=== PATIENT | male | born 1955 | race African-American/Black ===

== ENCOUNTER 2018-02-01 09:31 | Outpatient (CLI) | payer OTHER ==
--- NOTE | 2018-02-01 11:47 | RAD ---
CERVICAL SPINE THREE VIEWS: History: Neck pain. FINDINGS: Disc space narrowing is present at the C3-4, C4-5, C5-6, C6-7 and C7-T1 levels. Minimal degenerative retrolisthesis at the C6-7 level. Mild chronic wedging at the C6 level. Prominent osteophytosis throu ghout the vertebral bodies and facets. No acute fracture, dislocation, or aggressive osseous erosions . Opacification over the left carotid bifurcation. IMPRESSION: 1. Prominent cervical spondylosis. No acute osseous abnormalities are demonstrated. 2. Atherosclerosis. POS: TPC
== END 2018-02-01 09:32 | disposition home or self-care (01) ==
LOC: RAD-FRANK 09:31
PROVIDERS: ATTEND Internal Medicine
DX: M47.892 Other spondylosis, cervical region (principal); I70.90 Unspecified atherosclerosis
CPT/HCPCS: 72040

== ENCOUNTER 2018-03-23 16:07 | Outpatient (CLI) | payer OTHER ==
--- NOTE | 2018-03-23 17:13 | RAD ---
FIVE VIEWS CERVICAL SPINE: 03/23/18 HISTORY: Cervicalgia. Neck pain for 2 to 3 months. COMPARISON: 02/01/18. FINDINGS: C1 to cervicothoracic junction is seen on the lateral view. There is straightening of the normal cerv ical lordotic curvature. No fracture or subluxation is seen. There is narrowing of the intervertebral disc spaces at all levels with multilevel osteophytes also present. The vertebral body heights are w ithin normal limits. No fracture or subluxation is seen. there is no abnormal translational motion se en between flexion and extension views. Vascular calcifications are seen overlying the neck bilateral ly. There has been no interval change from prior exam. IMPRESSION: Multilevel degenerative changes in the cervical spine, stable from prior exam. POS: JEWEL
--- NOTE | 2018-03-23 17:15 | RAD ---
LUMBAR SPINE FOUR VIEWS 03/23/18 HISTORY: Low back pain. FINDINGS: There are five lumbar type vertebrae. Pedicles are intact. Vertebral body heights and AP alignment ar e maintained. Disc space narrowing at the lowest two levels. Osteophytosis throughout the vertebral b odies and facets. No abnormal translational motion upon flexion or extension. Calcification within th e arterial structures with fusiform ectasia of the lower abdominal aorta on the lateral view. IMPRESSION: 1. Lower lumbar spondylosis. No acute osseous abnormalities are demonstrated. 2. Atherosclerosis. POS: JEWEL
== END 2018-03-23 16:08 | disposition home or self-care (01) ==
LOC: TBSIIMAG 16:07
PROVIDERS: ATTEND Neurological Surgery
DX: M54.5 Low back pain (principal); M54.2 Cervicalgia; I70.90 Unspecified atherosclerosis; M47.896 Other spondylosis, lumbar region; M47.892 Other spondylosis, cervical region
CPT/HCPCS: 72050; 72120

== ENCOUNTER 2020-03-01 07:21 | Emergency (ER) | payer OTHER ==
--- NOTE | 2020-03-01 09:30 | ULT ---
Scrotal sonogram with duplex evaluation HISTORY: Testicular pain and swelling. FINDINGS: Right testicle is 3.6 cm length and left is 3.9 cm. Each has a normal sonographic appearanc e with good color and spectral Doppler flow. Small right epididymal head cysts. Large amount of free fluid is present throughout the left side of the scrotum. Small amount on the ri ght. IMPRESSION : No evidence of testicular mass or torsion. Large left hydrocele. Cause is not evident.
[2020-03-01 09:49] LABS: Bilirubin Negative (Negative); Blood, Urine Negative (Negative); Clarity Clear (Clear); Glucose, Urine (Dipstick) 500 mg/dL (Negative); Leukocyte Negative Leu/uL (Negative); Nitrite Negative (Negative); Protein, Urine (Dipstick) Negative (Neg-Trace); Urobilinogen Normal mg/dL (Less than 2)
[2020-03-01 18:30] LABS: Chlam.trachomatis by PCR,Urine Not Detected (NotDetected)
== END 2020-03-01 09:45 | disposition home or self-care (01) ==
LOC: ERS 07:21
DX: N43.3 Hydrocele, unspecified (principal); E11.9 Type 2 diabetes mellitus without complications; E78.5 Hyperlipidemia, unspecified; I10 Essential (primary) hypertension; E78.00 Pure hypercholesterolemia, unspecified
CPT/HCPCS: 76870; 81003; 87086; 87491; 87591; 93976

== ENCOUNTER 2020-10-11 09:15 | Inpatient (IN) | payer MEDICARE, MEDICAID ==
[2020-10-11] MEDS ORDERED: Dexamethasone 10 MG/ML VIAL ONE (10:06)
[2020-10-11 10:12] LABS: #Lymphocytes 0.6 thou/uL (1.20-3.40); #Monocytes 0.7 thou/uL (0.11-0.59); #Neutrophils 3.5 thou/uL (1.40-6.50); %Basophils 0.8 % (0.0-1.0); %Eosinophils 0.3 % (0.0-10.0); %Lymphocytes 12.9 % (21.0-51.0); %Monocytes 13.8 % (0.0-10.0); %Neutrophils 72.3 % (42.0-75.0); Hemoglobin 15.5 g/dL (14.0-18.0); Mean Corpuscular Hemoglobin 24.2 pg (27.0-31.0); Mean Corpuscular Volume 78.3 fL (78.0-98.0); Mean Platelet Volume 6.9 fL (7.4-10.4); Platelet Count 235 thou/uL (130-400); RBC Distribution Width 13.2 % (11.5-14.5); Red Blood Cell (RBC) Count 6.39 mill/uL (4.70-6.10); White Blood Cell (WBC) Count 4.8 thou/uL (4.8-10.8)
[2020-10-11 10:34] LABS: ALT (SGPT) 26 U/L (8-55); AST (SGOT) 38 U/L (5-34); Albumin 2.9 g/dL (3.4-4.8); Alkaline Phosphatase 52 U/L (40-110); Anion Gap 12 mmol/L (10-20); BUN (Urea Nitrogen) 20 mg/dL (8.4-25.7); Bilirubin, Total 0.3 mg/dL (0.2-1.2); Calc. Creatinine Clearance 0 mL/min (70-130); Calcium 8.6 mg/dL (7.8-10.44); Carbon Dioxide 32 mmol/L (23-31); Chloride 95 mmol/L (98-107); Globulin 3.7 g/dL (2.4-3.5); Glucose 116 mg/dL (80-115); Potassium 4.4 mmol/L (3.5-5.1); Protein, Total 6.6 g/dL (5.8-8.1); Sodium 135 mmol/L (136-145)
--- NOTE | 2020-10-11 10:35 | RAD ---
Chest AP view INDICATION: Generalized weakness with dyspnea COMPARISON: February 17, 2017 FINDINGS: Lungs: There is increased interstitial and airspace opacity involving the mid to lower lungs bilater ally. Cardiac silhouette: The cardiomediastinal silhouette appears within normal limits. Pulmonary vasculature: Normal Pleural spaces: No pleural effusion or pneumothorax is demonstrated. Upper abdomen: No abnormality seen. Osseous structures: No acute osseous abnormality. Additional findings: None. IMPRESSION: Hazy interstitial and airspace opacity involving the mid to lower lungs bilaterally. Recommend correl ation for an atypical pneumonia.
[2020-10-11 12:32] LABS: Bilirubin Negative (Negative); Blood, Urine 2+ (Negative); Clarity Turbid (Clear); Glucose, Urine (Dipstick) 30 mg/dL (Negative); Ketone, Urine Negative (Negative); Leukocyte Negative Leu/uL (Negative); Nitrite Negative (Negative); Protein, Urine (Dipstick) 600 mg/dL (Neg-Trace); Specific Gravity, Urine 1.022 (1.002-1.036); Urobilinogen Normal mg/dL (Less than 2)
[2020-10-11 12:41] LABS: RBC/HPF 0-3 HPF (0-3); WBC/HPF None Seen HPF (0-3)
[2020-10-11 12:42] LABS: Bacteria/HPF Rare-Few HPF (None Seen); Squamous Epithelial 0-3 HPF (0-3); Transitional Epithelial 0-3 HPF (None Seen)
[2020-10-11] MEDS ORDERED: Acetaminophen 650 MG Suppository PR PRN (15:45)
[2020-10-11] MEDS ORDERED: Ondansetron PF 4 MG/2 ML Vial IVP PRN (15:45)
[2020-10-11] MEDS ORDERED: Ondansetron ODT 4 MG TAB PO PRN (15:45)
[2020-10-11] MEDS ORDERED: Albuterol 200 PUFF (6.7GM INHALER) INH PRN ×2 (15:47→16:35)
[2020-10-11 15:49] LABS: SARS-CoV-2 NAA Rapid Test DETECTED (NotDetected)
--- NOTE | 2020-10-11 15:53 | PDOC.HHP ---
Hospitalist HPI - History of Present Illness Weakness History of Present Illness: Mr. Carreon is a 65-year-old male with a past medical history of type 2 diabetes mellitus, hypertension, hyperlipidemia, BPH who presents to the emergency room for generalized weakness and shortness of breath. Patient reports that his symptoms began approximately a week and a half ago with fatigue. He denies any fevers, chills or cough. Patient noted that this morning he became short of breath and endorsed chest pain that feels very sharp when he takes a deep breath in. He denies any chest pain at rest or when ambulating. He has no history of cardiac disease. He is a non-smoker. He denies any known Covid contacts. In emergency room initial vital signs 129/90, 109, 34, 86% on room air, improved to 98% on 2 L nasal cannula. EKG showed sinus tachycardia with no ST changes. Initial troponin 0 0.010. Chest x-ray showed diffuse patchy bilateral infiltrates consistent with COVID-19 pneumonia. H/H 15.5/50.1. WBC 4.8. Platelets 235. BUN/CR 20/1.13, sodium 135, potassium 4.4. Glucose 116. Patient received 6 mg of Decadron in emergency room. Hospitalist ROS - Review of Systems Constitutional: reports: weakness, malaise. denies: fever, chills, sweats, other Eyes: denies: pain, vision change, conjunctivae inflammation, eyelid inflammation, redness, other ENT: denies: ear pain, ear discharge, nose pain, nose discharge, nose congestion, mouth pain, mouth swelling, throat pain, throat swelling, other Respiratory: reports: shortness of breath, pleuritic pain. denies: cough, dry, hemoptysis, SOB with excertion, sputum, wheezing, other Cardiovascular: denies: chest pain, palpitations, orthopnea, paroxysmal noc. dyspnea, edema, light headedness, other Gastrointestinal: denies: nausea, vomiting, abdominal pain, diarrhea, constipation, melena, hematochezia, other Genitourinary: denies: dysuria, frequency, incontinence, hematuria, retention, other Musculoskeletal: denies: neck pain, shoulder pain, arm pain, back pain, hand pain, leg pain, foot pain, other Skin: denies: rash, lesions, esther, bruising, other Neurological: denies: weakness, numbness, incoordination, change in speech, confusion, seizures, other - Medication Medications: New medications include Plavix Flomax fungicide Lantus Losartan Simvastatin No known drug allergies Hospitalist History - Past Medical History Other Medical History: Past medical history includes Type 2 diabetes mellitus on insulin Hypertension Hyperlipidemia BPH - Family History Other Family History: No pertinent family history - Social History Smoking Status: Never smoker Alcohol: reports: None Drugs: reports: none Living Situation: Alone Activity level: independent ambulation - Exam General Appearance: NAD, awake alert General - other findings: Comfortable on 2 L nasal cannula Eye: PERRL, anicteric sclera ENT: normocephalic atraumatic, no oropharyngeal lesions, dry oral mucosa Neck: supple, symmetric, no JVD, no thyromegaly, no lymphadenopathy, no carotid bruit Heart: no murmur, no gallops, no rubs, normal peripheral pulses Heart - other findings: Tachycardic Respiratory: no wheezes, normal chest expansion, no tachypnea Respiratory - other findings: Rales at bases Gastrointestinal: soft, non-tender, non-distended, normal bowel sounds, no palpable masses, no hepatomegaly, no splenomegaly, no bruit Extremities: no cyanosis, no clubbing, no edema Skin: normal turgor, no lesions, no rashes Neurological: cranial nerve grossly intact, normal sensation to touch, no weakness, no focal deficits, no new deficit Musculoskeletal: normal tone, normal strength, no muscle wasting Psychiatric: normal affect, normal behavior, A&O x 3 Hospitalist Results - Labs Result Diagrams: 10/11/20 09:54 10/11/20 09:54 Lab results: WBC 4.8 thou/uL (4.8-10.8) 10/11/20 09:54 Hgb 15.5 g/dL (14.0-18.0) 10/11/20 09:54 Hct 50.1 % (42.0-52.0) 10/11/20 09:54 MCV 78.3 fL (78.0-98.0) 10/11/20 09:54 Plt Count 235 thou/uL (130-400) 10/11/20 09:54 Neutrophils % 72.3 % (42.0-75.0) 10/11/20 09:54 Sodium 135 mmol/L (136-145) L 10/11/20 09:54 Potassium 4.4 mmol/L (3.5-5.1) 10/11/20 09:54 Chloride 95 mmol/L (98-107) L 10/11/20 09:54 Carbon Dioxide 32 mmol/L (23-31) H 10/11/20 09:54 BUN 20 mg/dL (8.4-25.7) 10/11/20 09:54 Creatinine 1.13 mg/dL (0.7-1.3) 10/11/20 09:54 Glucose 116 mg/dL (80-115) H 10/11/20 09:54 Calcium 8.6 mg/dL (7.8-10.44) 10/11/20 09:54 Total Bilirubin 0.3 mg/dL (0.2-1.2) 10/11/20 09:54 AST 38 U/L (5-34) H 10/11/20 09:54 ALT 26 U/L (8-55) 10/11/20 09:54 Alkaline Phosphatase 52 U/L (40-110) 10/11/20 09:54 Troponin I Less than 0.010 ng/mL (< 0.028) 10/11/20 09:54 B-Natriuretic Peptide 17.6 pg/mL (0-100) 10/11/20 09:54 Serum Total Protein 6.6 g/dL (5.8-8.1) 10/11/20 09:54 Albumin 2.9 g/dL (3.4-4.8) L 10/11/20 09:54 Urine Ketones Negative mg/dL (Negative) 10/11/20 10:10 Urine Blood 2+ (Negative) A 10/11/20 10:10 Urine Nitrite Negative (Negative) 10/11/20 10:10 Ur Leukocyte Esterase Negative Tyesha/uL (Negative) 10/11/20 10:10 Urine RBC 0-3 HPF (0-3) 10/11/20 10:10 Urine WBC None Seen HPF (0-3) 10/11/20 10:10 Ur Squamous Epith Cells 0-3 HPF (0-3) 10/11/20 10:10 Urine Bacteria Rare-Few HPF (None Seen) 10/11/20 10:10 Hospitalist H&P A/P - Plan Plan: Suspected COVID-19 pneumonia Patient presents with 1-1/2 weeks of generalized weakness and shortness of breath. Chest x-ray showed bilateral patchy infiltrates consistent with COVID- 19 pneumonia. High suspicion. Patient does deny fevers, cough however does endorse myalgias, malaise. Patient with new O2 requirement 86% on room air now needing 2 L nasal cannula. WBC 4.8. H/H 15.5/50.1. Covid pending. Plan Covid pending Supplemental oxygen Tylenol, ibuprofen for myalgias Trend WBC, fever curve Dexamethasone, consider remdesivir if Covid positive Chest pain Patient with pleuritic chest pain. Describes pain worse when he takes a deep breath that is sharp. Denies any squeezing pressure like chest pain. No history of cardiac disease although patient does have significant risk factors. Initial troponin 0 0.010. EKG showed sinus tachycardia with no ST changes. Chest pain likely secondary to COVID-19 pneumonia, however will check D-dimer and consider CTA. Plan Likely secondary to COVID-19 pneumonia Trend troponin D-dimer Telemetry monitoring ASA Acute hypoxic respiratory failure Patient with acute hypoxic respiratory failure secondary to moderate to severe COVID-19 pneumonia. Patient with new oxygen requirement now on 2 L of oxygen nasal cannula to maintain O2 sat. We will continue supplemental oxygen and closely monitor respiratory status. Treatment as above. Plan -Supplemental oxygen -Treatment as above -Closely monitor respiratory status Hypertension Continue home losartan Hyperlipidemia Continue home statin Type 2 diabetes mellitus Continue Lantus at half dose, ISS, ACHS glucose checks BPH Continue Flomax DVT prophylaxis - Lovenox FULL CODE Case discussed with attending physician, Dr. Steinberg.
[2020-10-11 17:03] LABS: Lactic Acid 1.1 mmol/L (0.5-2.2)
[2020-10-11] MEDS ORDERED: Dextrose 50% Abboject 50 ML SYRINGE SLOW IVP PRN (20:45)
[2020-10-11] MEDS ORDERED: Dextrose 5% in Water 1,000 ML IV PRN (20:45)
[2020-10-11] MEDS: HumaLOG 300 UNITS/3 ML VIAL SC PRN (21:11)
[2020-10-12] MEDS: HumaLOG 300 UNITS/3 ML VIAL SC PRN ×4 (06:22→19:44)
[2020-10-12 06:43] LABS: Hemoglobin 14.8 g/dL (14.0-18.0); Mean Corpuscular HGB CONC 32.7 g/dL (32.0-36.0); Mean Corpuscular Volume 79.6 fL (78.0-98.0); Mean Platelet Volume 6.7 fL (7.4-10.4); Platelet Count 243 thou/uL (130-400); Red Blood Cell (RBC) Count 5.68 mill/uL (4.70-6.10); White Blood Cell (WBC) Count 3.8 thou/uL (4.8-10.8)
[2020-10-12 06:57] LABS: Anion Gap 10 mmol/L (10-20); BUN (Urea Nitrogen) 25 mg/dL (8.4-25.7); Calc. Creatinine Clearance 57 mL/min (70-130); Calcium 8.5 mg/dL (7.8-10.44); Carbon Dioxide 33 mmol/L (23-31); Chloride 98 mmol/L (98-107); Glucose 266 mg/dL (80-115); Sodium 136 mmol/L (136-145)
[2020-10-12] MEDS: Ascorbic Acid 500 mg Chewable Tablet PO SCH (08:03)
[2020-10-12] MEDS: Dexamethasone 4 MG TAB PO SCH (08:03)
[2020-10-12] MEDS: Zinc Sulfate 220 MG CAP PO SCH (08:03)
[2020-10-12 08:36] LABS: MDiff Complete? YES
[2020-10-12 08:37] LABS: Band 8 % (5-11); Eosinophils 1 % (0-10); Lymphocytes 22 % (21-51); Monocytes 18 % (0-10); Neutrophil 48 % (42-75); RBC Morphology Normal; Reactive Lymphocytes 3 % (0-10)
[2020-10-12] MEDS ORDERED: Enoxaparin Sodium 40 MG/0.4 ML SYRINGE SC SCH (09:00)
--- NOTE | 2020-10-12 09:15 | PDOC.HOSPP ---
- Subjective Encounter Date: 10/12/20 Encounter Time: 10:50 Subjective: Patient reports improved shortness of breath on oxygen. Still with coughing. Patient also with some generalized weakness. - Objective Vital Signs & Weight: Vital Signs (12 hours) Temp Pulse Resp BP Pulse Ox 10/12/20 08:00 98.4 F 84 22 H 137/93 H 93 L 10/12/20 04:00 97.5 F L 102 H 20 146/98 H 99 10/12/20 00:00 97.4 F L 100 20 119/80 95 Weight Weight 146 lb 12.8 oz Result Diagrams: 10/12/20 05:57 10/12/20 05:57 Additional Labs: Accuchecks 10/12/20 10/11/20 10/11/20 05:42 19:57 09:41 POC Glucose 251 H 374 H 123 H Hospitalist ROS - Review of Systems Constitutional: reports: weakness. denies: fever, chills Respiratory: reports: cough, shortness of breath Cardiovascular: denies: chest pain, palpitations Gastrointestinal: denies: nausea, vomiting, abdominal pain - Medication Medications: Active Medications Generic Name Dose Route Start Last Admin Trade Name Freq PRN Reason Stop Dose Admin Ascorbic Acid 1,000 mg 10/12/20 09:00 10/12/20 08:03 Ascorbic Acid 500 Mg Chewable Tablet PO 1,000 mg DAILY FER Administration Dexamethasone 6 mg 10/12/20 08:00 10/12/20 08:03 Dexamethasone 4 Mg Tab PO 6 mg QAM-WM FER Administration Enoxaparin Sodium 40 mg 10/12/20 09:00 10/12/20 08:03 Enoxaparin Sodium 40 Mg/0.4 Ml Syringe SC 40 mg 0900 FER Administration Insulin Human Lispro 0 units 10/11/20 20:45 10/12/20 06:22 Humalog 300 Units/3 Ml Vial SC 6 unit .MODERATE SLIDING SC PRN Administration Moderate Correctional Scale Insulin Human Lispro 0 units 10/11/20 20:45 10/11/20 21:11 Humalog 300 Units/3 Ml Vial SC 5 unit .BEDTIME SLIDING SC PRN Administration Bedtime Correctional Scale Zinc Sulfate 220 mg 10/12/20 09:00 10/12/20 08:03 Zinc Sulfate 220 Mg Cap PO 220 mg DAILY FER Administration - Exam General Appearance: NAD, awake alert ENT: moist mucosa Heart: RRR, no murmur, no gallops, no rubs Respiratory: CTAB, no wheezes, no rales, no ronchi Gastrointestinal: soft, non-tender, non-distended, normal bowel sounds Extremities: no edema Psychiatric: normal affect, normal behavior Hosp A/P - Plan COVID-19 pneumonia Patient presents with 1-1/2 weeks of generalized weakness and shortness of breath. Chest x-ray showed bilateral patchy infiltrates consistent with COVID- 19 pneumonia. Covid-19 test now positive. Patient does deny fevers, cough however does endorse myalgias, malaise. Patient with new O2 requirement 86% on room air now needing 2 L nasal cannula. WBC 4.8. H/H 15.5/50.1. Plan Supplemental oxygen Tylenol, ibuprofen for myalgias Trend WBC, fever curve Dexamethasone, start Remdesivir Chest pain-resolved Patient with pleuritic chest pain. Describes pain worse when he takes a deep breath that is sharp. Denies any squeezing pressure like chest pain. No history of cardiac disease although patient does have significant risk factors. Initial troponin 0 0.010. EKG showed sinus tachycardia with no ST changes. Chest pain likely secondary to COVID-19 pneumonia, however will check D-dimer an d consider CTA. Plan Secondary to COVID-19 pneumonia Trend troponin D-dimer Telemetry monitoring ASA Acute hypoxic respiratory failure Patient with acute hypoxic respiratory failure secondary to moderate to severe COVID-19 pneumonia. Patient with new oxygen requirement now on 2 L of oxygen nasal cannula to maintain O2 sat. We will continue supplemental oxygen and closely monitor respiratory status. Treatment as above. Plan -Supplemental oxygen -Treatment as above -Closely monitor respiratory status Hypertension Continue home losartan Hyperlipidemia Continue home statin Type 2 diabetes mellitus Resume home Lantus and glipizide, ISS, ACHS glucose checks BPH Continue Flomax DVT prophylaxis - Lovenox FULL CODE
[2020-10-12] MEDS ORDERED: Insulin Glargine 20 UNITS in Pre-Filled Syringe 1 EACH SC SCH (09:30)
[2020-10-12] MEDS ORDERED: REMDESIVIR (EUA) 200 MG in Sodium Chloride 0.9% 250 ML 210 ML IV SCH (11:30)
[2020-10-12] MEDS: Acetaminophen 325 MG TAB PO PRN (16:27)
[2020-10-12] MEDS: Atorvastatin Calcium 20 MG TAB PO SCH (19:53)
[2020-10-13 07:39] LABS: #Lymphocytes 0.8 thou/uL (1.20-3.40); #Monocytes 0.6 thou/uL (0.11-0.59); #Neutrophils 4.7 thou/uL (1.40-6.50); %Basophils 0.3 % (0.0-1.0); %Eosinophils 0.1 % (0.0-10.0); %Lymphocytes 12.7 % (21.0-51.0); %Neutrophils 76.8 % (42.0-75.0); Hemoglobin 14.4 g/dL (14.0-18.0); Mean Corpuscular HGB CONC 31.6 g/dL (32.0-36.0); Mean Corpuscular Hemoglobin 24.9 pg (27.0-31.0); Mean Corpuscular Volume 78.7 fL (78.0-98.0); Mean Platelet Volume 6.4 fL (7.4-10.4); Platelet Count 305 thou/uL (130-400); Red Blood Cell (RBC) Count 5.76 mill/uL (4.70-6.10); White Blood Cell (WBC) Count 6.2 thou/uL (4.8-10.8)
[2020-10-13 07:55] LABS: Anion Gap 14 mmol/L (10-20); BUN (Urea Nitrogen) 20 mg/dL (8.4-25.7); Calc. Creatinine Clearance 79 mL/min (70-130); Calcium 8.5 mg/dL (7.8-10.44); Carbon Dioxide 28 mmol/L (23-31); Chloride 101 mmol/L (98-107); Glucose 127 mg/dL (80-115); Potassium 4.6 mmol/L (3.5-5.1); Sodium 138 mmol/L (136-145)
--- NOTE | 2020-10-13 08:02 | PDOC.HOSPP ---
- Subjective Encounter Date: 10/13/20 Encounter Time: 10:10 Subjective: Patient reports shortness of breath and cough though appears improved. He has had to be increased to 5 L of oxygen via nasal cannula. No new complaints. - Objective Vital Signs & Weight: Vital Signs (12 hours) Temp Pulse Resp BP Pulse Ox 10/13/20 05:11 97.6 F 86 18 141/86 H 97 10/13/20 00:11 97.6 F 82 18 152/102 H 90 L 10/12/20 20:04 98.1 F 101 H 18 138/87 98 Weight Admit Weight 146 lb 12.8 oz Weight 146 lb 12.8 oz Result Diagrams: 10/13/20 06:39 10/13/20 06:39 Additional Labs: Accuchecks 10/13/20 10/12/20 10/12/20 04:20 19:14 16:17 POC Glucose 158 H 229 H 250 H Hospitalist ROS - Review of Systems Constitutional: denies: fever, chills Respiratory: reports: cough, shortness of breath Cardiovascular: denies: chest pain, palpitations Gastrointestinal: denies: nausea, vomiting, abdominal pain - Medication Medications: Active Medications Generic Name Dose Route Start Last Admin Trade Name Freq PRN Reason Stop Dose Admin Acetaminophen 650 mg 10/11/20 15:45 10/12/20 16:27 Acetaminophen 325 Mg Tab PO 650 mg Q4H PRN Administration Headache/Fever/Mild Pain (1-3) Ascorbic Acid 1,000 mg 10/12/20 09:00 10/12/20 08:03 Ascorbic Acid 500 Mg Chewable Tablet PO 1,000 mg DAILY FER Administration Atorvastatin Calcium 20 mg 10/12/20 21:00 10/12/20 19:53 Atorvastatin Calcium 20 Mg Tab PO 20 mg HS FER Administration Dexamethasone 6 mg 10/12/20 08:00 10/12/20 08:03 Dexamethasone 4 Mg Tab PO 6 mg QAM-WM FER Administration Enoxaparin Sodium 40 mg 10/12/20 09:00 10/12/20 08:03 Enoxaparin Sodium 40 Mg/0.4 Ml Syringe SC 40 mg 0900 FER Administration Insulin Human Lispro 0 units 10/11/20 20:45 10/12/20 16:27 Humalog 300 Units/3 Ml Vial SC 4 unit .MODERATE SLIDING SC PRN Administration Moderate Correctional Scale Insulin Human Lispro 0 units 10/11/20 20:45 10/12/20 19:44 Humalog 300 Units/3 Ml Vial SC 2 unit .BEDTIME SLIDING SC PRN Administration Bedtime Correctional Scale Zinc Sulfate 220 mg 10/12/20 09:00 10/12/20 08:03 Zinc Sulfate 220 Mg Cap PO 220 mg DAILY FER Administration - Exam General Appearance: NAD, awake alert ENT: moist mucosa Heart: RRR, no murmur, no gallops, no rubs Respiratory: CTAB, no wheezes, no rales, no ronchi Gastrointestinal: soft, non-tender, non-distended, normal bowel sounds Extremities: no edema Psychiatric: normal affect, normal behavior Hosp A/P - Plan COVID-19 pneumonia Patient presents with 1-1/2 weeks of generalized weakness and shortness of breath. Chest x-ray showed bilateral patchy infiltrates consistent with COVID- 19 pneumonia. Covid-19 test now positive. Patient does deny fevers, cough however does endorse myalgias, malaise. Patient with new O2 requirement 86% on room air now needing 2 L nasal cannula. WBC 4.8. H/H 15.5/50.1. 10/13- Oxygen now up to 5 L NC O2. Plan Supplemental oxygen Tylenol, ibuprofen for myalgias Trend WBC, fever curve Dexamethasone, Remdesivir day 2 Chest pain-resolved Patient with pleuritic chest pain. Describes pain worse when he takes a deep breath that is sharp. Denies any squeezing pressure like chest pain. No history of cardiac disease although patient does have significant risk factors. Initial troponin 0 0.010. EKG showed sinus tachycardia with no ST changes. Chest pain likely secondary to COVID-19 pneumonia. Plan Secondary to COVID-19 pneumonia ASA Acute hypoxic respiratory failure Patient with acute hypoxic respiratory failure secondary to moderate to severe COVID-19 pneumonia. Patient with new oxygen requirement now on 5 L of oxygen nasal cannula to maintain O2 sat. We will continue supplemental oxygen and closely monitor respiratory status. Treatment as above. Plan -Supplemental oxygen -Treatment as above -Closely monitor respiratory status Hypertension Continue home losartan Hyperlipidemia Continue home statin Type 2 diabetes mellitus Resume home Lantus and glipizide, ISS, ACHS glucose checks BPH Continue Flomax DVT prophylaxis - Lovenox FULL CODE
[2020-10-13] MEDS: Insulin Glargine 20 UNITS in Pre-Filled Syringe 1 EACH SC SCH (08:39)
[2020-10-13] MEDS: Losartan 25 MG TAB PO SCH (08:40)
[2020-10-13] MEDS: glipiZIDE 10 MG TAB PO SCH (08:40)
[2020-10-13] MEDS: Enoxaparin Sodium 40 MG/0.4 ML SYRINGE SC SCH ×2 (08:40→20:49)
[2020-10-13] MEDS: Zinc Sulfate 220 MG CAP PO SCH (08:40)
[2020-10-13] MEDS: Cholecalciferol 1,000 UNITS (25 MCG) TAB PO SCH (08:41)
[2020-10-13] MEDS: Dexamethasone 4 MG TAB PO SCH (08:41)
[2020-10-13] MEDS: Hydrochlorothiazide 25 MG TAB PO SCH (08:41)
[2020-10-13] MEDS: Ascorbic Acid 500 mg Chewable Tablet PO SCH (08:41)
[2020-10-13] MEDS: Tamsulosin HCl 0.4 MG CAP PO SCH (08:42)
[2020-10-13] MEDS: Clopidogrel Bisulfate 75 MG TAB PO SCH (08:42)
[2020-10-13] MEDS: Acetaminophen 325 MG TAB PO PRN (08:42)
[2020-10-13] MEDS ORDERED: Losartan 25 MG TAB PO SCH (09:00)
[2020-10-13] MEDS ORDERED: Non-Formulary Item 1 EACH (Hydrochlorothiazide [Hydrochlorothiazide] 12.5 MG Capsule) PO SCH (09:00)
[2020-10-13] MEDS ORDERED: Clopidogrel Bisulfate 75 MG TAB PO SCH (09:00)
[2020-10-13] MEDS ORDERED: Tamsulosin HCl 0.4 MG CAP PO SCH (09:00)
[2020-10-13] MEDS: HumaLOG 300 UNITS/3 ML VIAL SC PRN ×2 (12:35→20:50)
[2020-10-13] MEDS: REMDESIVIR (EUA) 100 MG in Sodium Chloride 0.9% 250 ML 230 ML IV SCH (14:39)
[2020-10-13] MEDS: Atorvastatin Calcium 20 MG TAB PO SCH (20:49)
[2020-10-14 06:37] LABS: #Lymphocytes 1.1 thou/uL (1.20-3.40); #Monocytes 0.5 thou/uL (0.11-0.59); #Neutrophils 4.5 thou/uL (1.40-6.50); %Basophils 0.4 % (0.0-1.0); %Eosinophils 0.3 % (0.0-10.0); %Monocytes 7.6 % (0.0-10.0); %Neutrophils 73.6 % (42.0-75.0); Hemoglobin 15.2 g/dL (14.0-18.0); Mean Corpuscular HGB CONC 30.8 g/dL (32.0-36.0); Mean Corpuscular Hemoglobin 24.3 pg (27.0-31.0); Mean Corpuscular Volume 79.1 fL (78.0-98.0); Mean Platelet Volume 6.1 fL (7.4-10.4); Platelet Count 344 thou/uL (130-400); RBC Distribution Width 13.2 % (11.5-14.5); Red Blood Cell (RBC) Count 6.24 mill/uL (4.70-6.10); White Blood Cell (WBC) Count 6.1 thou/uL (4.8-10.8)
[2020-10-14 06:57] LABS: Anion Gap 10 mmol/L (10-20); BUN (Urea Nitrogen) 18 mg/dL (8.4-25.7); Calc. Creatinine Clearance 74 mL/min (70-130); Calcium 8.9 mg/dL (7.8-10.44); Carbon Dioxide 31 mmol/L (23-31); Chloride 100 mmol/L (98-107); Glucose 78 mg/dL (80-115); Potassium 4.4 mmol/L (3.5-5.1); Sodium 137 mmol/L (136-145)
[2020-10-14] MEDS: Insulin Glargine 20 UNITS in Pre-Filled Syringe 1 EACH SC SCH (08:30)
[2020-10-14] MEDS: Ascorbic Acid 500 mg Chewable Tablet PO SCH (08:31)
[2020-10-14] MEDS: Hydrochlorothiazide 25 MG TAB PO SCH (08:31)
[2020-10-14] MEDS: Tamsulosin HCl 0.4 MG CAP PO SCH (08:31)
[2020-10-14] MEDS: Enoxaparin Sodium 40 MG/0.4 ML SYRINGE SC SCH ×2 (08:31→19:29)
[2020-10-14] MEDS: Dexamethasone 4 MG TAB PO SCH (08:31)
[2020-10-14] MEDS: glipiZIDE 10 MG TAB PO SCH (08:31)
[2020-10-14] MEDS: Losartan 25 MG TAB PO SCH (08:32)
[2020-10-14] MEDS: Cholecalciferol 1,000 UNITS (25 MCG) TAB PO SCH (08:32)
[2020-10-14] MEDS: Clopidogrel Bisulfate 75 MG TAB PO SCH (08:32)
[2020-10-14] MEDS: Zinc Sulfate 220 MG CAP PO SCH (08:32)
[2020-10-14] MEDS: HumaLOG 300 UNITS/3 ML VIAL SC PRN ×3 (11:41→19:31)
[2020-10-14] MEDS: REMDESIVIR (EUA) 100 MG in Sodium Chloride 0.9% 250 ML 230 ML IV SCH (14:09)
[2020-10-14] MEDS ORDERED: Polyethylene Glycol 3350 17 GM Packet PO SCH (14:45)
--- NOTE | 2020-10-14 18:17 | PDOC.HOSPP ---
- Subjective Encounter Date: 10/14/20 Encounter Time: 12:30 Subjective: Patient seen and examined for respiratory failure due to COVID-19 pneumonia. Shortness of breath slowly improving. Denies any chest pain, palpitations or syncope. Mild dry cough reported. - Objective Vital Signs & Weight: Vital Signs (12 hours) Temp Pulse Resp BP Pulse Ox 10/14/20 12:12 97.5 F L 93 20 113/78 93 L 10/14/20 12:00 97 10/14/20 08:54 98.5 F 106 H 20 105/70 94 L 10/14/20 08:43 93 L 10/14/20 08:00 94 L Weight Admit Weight 146 lb 12.8 oz Weight 149 lb 8 oz I&O: 10/13/20 10/14/20 10/15/20 06:59 06:59 06:59 Intake Total 360 Output Total 400 1000 Balance -400 -640 Result Diagrams: 10/14/20 06:23 10/14/20 06:23 Additional Labs: Accuchecks 10/14/20 10/14/20 10/13/20 16:45 11:15 19:21 POC Glucose 212 H 214 H 276 H Abnormal Lab Results - Last 48 hrs 10/13/20 06:39: MCH 24.9 L, MCHC 31.6 L, MPV 6.4 L, Neutrophils % 76.8 H, Lymphocytes % 12.7 L, Lymphocytes # 0.8 L, Monocytes # 0.6 H 10/14/20 06:23: RBC 6.24 H, MCH 24.3 L, MCHC 30.8 L, MPV 6.1 L, Lymphocytes % 18.0 L, Lymphocytes # 1.1 L Radiology Reviewed by me: Yes (Chest x-raybilateral pneumonia) Hospitalist ROS - Review of Systems Cardiovascular: denies: chest pain, palpitations, orthopnea, paroxysmal noc. dyspnea, edema, light headedness, other Gastrointestinal: denies: nausea, vomiting, abdominal pain, diarrhea, constipation, melena, hematochezia, other - Medication Medications: Active Medications Generic Name Dose Route Start Last Admin Trade Name Freq PRN Reason Stop Dose Admin Acetaminophen 650 mg 10/11/20 15:45 10/13/20 08:42 Acetaminophen 325 Mg Tab PO 650 mg Q4H PRN Administration Headache/Fever/Mild Pain (1-3) Ascorbic Acid 1,000 mg 10/12/20 09:00 10/14/20 08:31 Ascorbic Acid 500 Mg Chewable Tablet PO 1,000 mg DAILY FER Administration Atorvastatin Calcium 20 mg 10/12/20 21:00 10/13/20 20:49 Atorvastatin Calcium 20 Mg Tab PO 20 mg HS FER Administration Cholecalciferol 1,000 units 10/13/20 09:00 10/14/20 08:32 Cholecalciferol 1,000 Units (25 Mcg) Tab PO 1,000 units DAILY FER Administration Clopidogrel Bisulfate 75 mg 10/13/20 09:00 10/14/20 08:32 Clopidogrel Bisulfate 75 Mg Tab PO 75 mg DAILY FER Administration Dexamethasone 6 mg 10/12/20 08:00 10/14/20 08:31 Dexamethasone 4 Mg Tab PO 6 mg QAM-WM FER Administration Enoxaparin Sodium 40 mg 10/13/20 09:00 10/14/20 08:31 Enoxaparin Sodium 40 Mg/0.4 Ml Syringe SC 40 mg 0900,2100 FER Administration Glipizide 10 mg 10/13/20 09:00 10/14/20 08:31 Glipizide 10 Mg Tab PO 10 mg DAILY FER Administration Hydrochlorothiazide 12.5 mg 10/13/20 09:00 10/14/20 08:31 Hydrochlorothiazide 25 Mg Tab PO 12.5 mg DAILY FER Administration Insulin Glargine 20 units/ 0.2 mls @ 0 mls/hr 10/13/20 09:00 10/14/20 08:30 Miscellaneous Medication SC 0.2 mls DAILY FER Administration Remdesivir 100 mg/ Sodium 250 mls @ 250 mls/hr 10/13/20 13:00 10/14/20 14:09 Chloride IV 10/16/20 13:59 250 mls 1300 FER Administration Insulin Human Lispro 0 units 10/11/20 20:45 10/14/20 16:57 Humalog 300 Units/3 Ml Vial SC 4 unit .MODERATE SLIDING SC PRN Administration Moderate Correctional Scale Insulin Human Lispro 0 units 10/11/20 20:45 10/13/20 20:50 Humalog 300 Units/3 Ml Vial SC 3 unit .BEDTIME SLIDING SC PRN Administration Bedtime Correctional Scale Losartan Potassium 25 mg 10/13/20 09:00 10/14/20 08:32 Losartan 25 Mg Tab PO 25 mg DAILY FER Administration Tamsulosin HCl 0.4 mg 10/13/20 09:00 10/14/20 08:31 Tamsulosin Hcl 0.4 Mg Cap PO 0.4 mg DAILY FER Administration Zinc Sulfate 220 mg 10/12/20 09:00 10/14/20 08:32 Zinc Sulfate 220 Mg Cap PO 220 mg DAILY FER Administration - Exam General Appearance: NAD Heart: RRR, no gallops Respiratory: no wheezes, rales, rhonchi Gastrointestinal: soft, non-distended Extremities: no cyanosis, no clubbing Neurological: no new deficit Musculoskeletal: generalized weakness Hosp A/P - Plan DVT proph w/SCDs Acute hypoxic respiratory failure due to COVID-19 pneumonia Hypertension Hyperlipidemia Diabetes mellitus type 2 Benign prostatic hypertrophy Constipation Plan: Continue O2 supplementation. Continue remdesivir with Decadron. Continue Lovenox for DVT prophylaxis. Continue current dose of Lantus with sliding scale. Continue other antihypertensives. Treat constipation. Continue other medications as above. Monitor inflammatory markers
[2020-10-14] MEDS: Atorvastatin Calcium 20 MG TAB PO SCH (19:28)
[2020-10-14] MEDS: Acetaminophen 325 MG TAB PO PRN (19:28)
[2020-10-14] MEDS: Senokot S 8.6-50 MG TAB PO SCH (19:29)
[2020-10-15 07:15] LABS: #Eosinphils 0.1 thou/uL (0.0-0.7); #Monocytes 0.5 thou/uL (0.11-0.59); #Neutrophils 4.1 thou/uL (1.40-6.50); %Lymphocytes 17.3 % (21.0-51.0); %Neutrophils 72.8 % (42.0-75.0); Hemoglobin 15.3 g/dL (14.0-18.0); Mean Corpuscular HGB CONC 32.1 g/dL (32.0-36.0); Mean Corpuscular Hemoglobin 25.8 pg (27.0-31.0); Mean Corpuscular Volume 80.4 fL (78.0-98.0); Platelet Count 341 thou/uL (130-400); RBC Distribution Width 13.1 % (11.5-14.5); Red Blood Cell (RBC) Count 5.91 mill/uL (4.70-6.10); White Blood Cell (WBC) Count 5.6 thou/uL (4.8-10.8)
[2020-10-15 07:30] LABS: ALT (SGPT) 45 U/L (8-55); AST (SGOT) 28 U/L (5-34); Albumin 2.8 g/dL (3.4-4.8); Alkaline Phosphatase 59 U/L (40-110); Anion Gap 12 mmol/L (10-20); BUN (Urea Nitrogen) 21 mg/dL (8.4-25.7); Bilirubin, Total 0.3 mg/dL (0.2-1.2); CRP (Inflammatory) 6.14 mg/dL (= or < 0.5); Calc. Creatinine Clearance 63 mL/min (70-130); Calcium 8.9 mg/dL (7.8-10.44); Carbon Dioxide 34 mmol/L (23-31); Chloride 99 mmol/L (98-107); Globulin 3.4 g/dL (2.4-3.5); Glucose 74 mg/dL (80-115); Potassium 4.4 mmol/L (3.5-5.1); Protein, Total 6.2 g/dL (5.8-8.1); Sodium 141 mmol/L (136-145)
[2020-10-15] MEDS: glipiZIDE 10 MG TAB PO SCH (08:31)
[2020-10-15] MEDS: Zinc Sulfate 220 MG CAP PO SCH (08:31)
[2020-10-15] MEDS: Ascorbic Acid 500 mg Chewable Tablet PO SCH (08:31)
[2020-10-15] MEDS: Hydrochlorothiazide 25 MG TAB PO SCH (08:31)
[2020-10-15] MEDS: Dexamethasone 4 MG TAB PO SCH (08:32)
[2020-10-15] MEDS: Tamsulosin HCl 0.4 MG CAP PO SCH (08:32)
[2020-10-15] MEDS: Senokot S 8.6-50 MG TAB PO SCH ×2 (08:32→20:42)
[2020-10-15] MEDS: Clopidogrel Bisulfate 75 MG TAB PO SCH (08:32)
[2020-10-15] MEDS: Losartan 25 MG TAB PO SCH (08:32)
[2020-10-15] MEDS: Cholecalciferol 1,000 UNITS (25 MCG) TAB PO SCH (08:32)
[2020-10-15] MEDS: Polyethylene Glycol 3350 17 GM Packet PO SCH (08:33)
[2020-10-15] MEDS: Enoxaparin Sodium 40 MG/0.4 ML SYRINGE SC SCH ×2 (08:33→20:43)
[2020-10-15] MEDS: Acetaminophen 325 MG TAB PO PRN ×2 (13:01→20:42)
[2020-10-15] MEDS: REMDESIVIR (EUA) 100 MG in Sodium Chloride 0.9% 250 ML 230 ML IV SCH (14:58)
[2020-10-15] MEDS: HumaLOG 300 UNITS/3 ML VIAL SC PRN ×2 (16:48→20:44)
[2020-10-15] MEDS: Atorvastatin Calcium 20 MG TAB PO SCH (20:43)
[2020-10-15] MEDS: Insulin Glargine 10 UNITS in Pre-Filled Syringe 1 EACH SC SCH (20:44)
--- NOTE | 2020-10-15 21:44 | PDOC.HOSPP ---
- Subjective Encounter Date: 10/15/20 Encounter Time: 14:30 Subjective: Patient seen and examined for respiratory failure due to COVID 19 pneumonia. Symptomatically feeling better. Denies any chest pain or palpitations. Shortness of breath improving. - Objective Vital Signs & Weight: Vital Signs (12 hours) Temp Pulse Resp BP Pulse Ox Pulse Ox Pulse Ox 10/15/20 20:00 94 L 10/15/20 19:48 97.7 F 87 18 97/64 94 L 10/15/20 15:50 88 20 93 L 10/15/20 09:58 91 L 92 L Weight Admit Weight 146 lb 12.8 oz Weight 149 lb 8 oz I&O: 10/14/20 10/15/20 10/16/20 06:59 06:59 06:59 Intake Total 360 Output Total 400 1000 Balance -400 -640 Result Diagrams: 10/15/20 06:21 10/15/20 06:21 Additional Labs: Accuchecks 10/15/20 10/15/20 10/15/20 19:57 16:23 11:39 POC Glucose 264 H 351 H 165 H 10/15/20 10/14/20 10/13/20 03:50 19:27 11:43 POC Glucose 141 H 210 H 180 H 10/12/20 11:15 POC Glucose 259 H Abnormal Lab Results - Last 48 hrs 10/14/20 06:23: RBC 6.24 H, MCH 24.3 L, MCHC 30.8 L, MPV 6.1 L, Lymphocytes % 18.0 L, Lymphocytes # 1.1 L 10/15/20 06:21: MCH 25.8 L, MPV 6.0 L, Lymphocytes % 17.3 L, Lymphocytes # 1.0 L 10/15/20 06:21: Carbon Dioxide 34 H, C-Reactive Protein 6.14 H, Albumin 2.8 L, Albumin/Globulin Ratio 0.8 L 10/15/20 06:21: D-Dimer 1.91 H Radiology Reviewed by me: Yes (Chest x-ray on admission reviewed) Hospitalist ROS - Review of Systems Cardiovascular: denies: chest pain, palpitations, orthopnea, paroxysmal noc. dyspnea, edema, light headedness, other Gastrointestinal: denies: nausea, vomiting, abdominal pain, diarrhea, constipation, melena, hematochezia, other - Medication Medications: Active Medications Generic Name Dose Route Start Last Admin Trade Name Freq PRN Reason Stop Dose Admin Acetaminophen 650 mg 10/11/20 15:45 10/15/20 20:42 Acetaminophen 325 Mg Tab PO 650 mg Q4H PRN Administration Headache/Fever/Mild Pain (1-3) Ascorbic Acid 1,000 mg 10/12/20 09:00 10/15/20 08:31 Ascorbic Acid 500 Mg Chewable Tablet PO 1,000 mg DAILY FER Administration Atorvastatin Calcium 20 mg 10/12/20 21:00 10/15/20 20:43 Atorvastatin Calcium 20 Mg Tab PO 20 mg HS FER Administration Cholecalciferol 1,000 units 10/13/20 09:00 10/15/20 08:32 Cholecalciferol 1,000 Units (25 Mcg) Tab PO 1,000 units DAILY FER Administration Clopidogrel Bisulfate 75 mg 10/13/20 09:00 10/15/20 08:32 Clopidogrel Bisulfate 75 Mg Tab PO 75 mg DAILY FER Administration Dexamethasone 6 mg 10/12/20 08:00 10/15/20 08:32 Dexamethasone 4 Mg Tab PO 6 mg QAM- FER Administration Enoxaparin Sodium 40 mg 10/13/20 09:00 10/15/20 20:43 Enoxaparin Sodium 40 Mg/0.4 Ml Syringe SC 40 mg 0900,2100 FER Administration Glipizide 10 mg 10/13/20 09:00 10/15/20 08:31 Glipizide 10 Mg Tab PO 10 mg DAILY FER Administration Hydrochlorothiazide 12.5 mg 10/13/20 09:00 10/15/20 08:31 Hydrochlorothiazide 25 Mg Tab PO 12.5 mg DAILY FER Administration Remdesivir 100 mg/ Sodium 250 mls @ 250 mls/hr 10/13/20 13:00 10/15/20 14:58 Chloride IV 10/16/20 13:59 250 mls 1300 FER Administration Insulin Glargine 10 units/ 0.1 mls @ 0 mls/hr 10/15/20 21:00 10/15/20 20:44 Miscellaneous Medication SC 0.1 mls HS FER Administration Insulin Human Lispro 0 units 10/11/20 20:45 10/15/20 16:48 Humalog 300 Units/3 Ml Vial SC 10 unit .MODERATE SLIDING SC PRN Administration Moderate Correctional Scale Insulin Human Lispro 0 units 10/11/20 20:45 10/15/20 20:44 Humalog 300 Units/3 Ml Vial SC 3 unit .BEDTIME SLIDING SC PRN Administration Bedtime Correctional Scale Losartan Potassium 25 mg 10/13/20 09:00 10/15/20 08:32 Losartan 25 Mg Tab PO 25 mg DAILY FER Administration Polyethylene Glycol 17 gm 10/15/20 09:00 10/15/20 08:33 Polyethylene Glycol 3350 17 Gm Packet PO 17 gm DAILY FER Administration Senna/Docusate Sodium 2 tab 10/14/20 21:00 10/15/20 20:42 Senokot S 8.6-50 Mg Tab PO 2 tab BID FER Administration Tamsulosin HCl 0.4 mg 10/13/20 09:00 10/15/20 08:32 Tamsulosin Hcl 0.4 Mg Cap PO 0.4 mg DAILY FER Administration Zinc Sulfate 220 mg 10/12/20 09:00 10/15/20 08:31 Zinc Sulfate 220 Mg Cap PO 220 mg DAILY FER Administration - Exam General Appearance: awake alert Neck: supple, no JVD Heart: RRR, no gallops Respiratory: rales, rhonchi Extremities: no cyanosis, no clubbing Neurological: no new deficit Musculoskeletal: generalized weakness Psychiatric: A&O x 3 Hosp A/P - Plan DVT proph w/SCDs Acute hypoxic respiratory failure due to COVID-19 pneumonia Hypertension Hyperlipidemia Diabetes mellitus type 2 Benign prostatic hypertrophy Constipation Plan: Patient requiring 4 L oxygen nasal cannula. Continue to wean O2 as tolerated. Inflammatory markers improving. Will reduce Lantus dose due to hypoglycemia. Continue Remdesivir with Decadron. Continue other medications as above. A.m. labs.
[2020-10-15] MEDS ORDERED: Electrolyte Replacement Protocol 1 EACH FS SCH (21:45)
[2020-10-15] MEDS ORDERED: Magnesium 2 GM/50 ML 2 GM in Premix Bag 1 BAG IVPB SCH (22:00)
[2020-10-16] MEDS: HumaLOG 300 UNITS/3 ML VIAL SC PRN ×4 (04:40→20:12)
[2020-10-16 06:14] LABS: #Eosinphils 0.1 thou/uL (0.0-0.7); #Lymphocytes 1.2 thou/uL (1.20-3.40); #Monocytes 0.3 thou/uL (0.11-0.59); #Neutrophils 4.8 thou/uL (1.40-6.50); %Basophils 0.4 % (0.0-1.0); %Eosinophils 2.1 % (0.0-10.0); %Lymphocytes 18.5 % (21.0-51.0); %Monocytes 5.2 % (0.0-10.0); %Neutrophils 73.8 % (42.0-75.0); Hemoglobin 14.8 g/dL (14.0-18.0); Mean Corpuscular HGB CONC 31.9 g/dL (32.0-36.0); Mean Corpuscular Hemoglobin 25.2 pg (27.0-31.0); Mean Corpuscular Volume 79.2 fL (78.0-98.0); Mean Platelet Volume 5.9 fL (7.4-10.4); Platelet Count 396 thou/uL (130-400); RBC Distribution Width 13.1 % (11.5-14.5); Red Blood Cell (RBC) Count 5.86 mill/uL (4.70-6.10); White Blood Cell (WBC) Count 6.5 thou/uL (4.8-10.8)
[2020-10-16 06:41] LABS: ALT (SGPT) 51 U/L (8-55); AST (SGOT) 25 U/L (5-34); Albumin 2.6 g/dL (3.4-4.8); Alkaline Phosphatase 62 U/L (40-110); Anion Gap 12 mmol/L (10-20); BUN (Urea Nitrogen) 23 mg/dL (8.4-25.7); Bilirubin, Total 0.3 mg/dL (0.2-1.2); Calc. Creatinine Clearance 78 mL/min (70-130); Calcium 8.8 mg/dL (7.8-10.44); Carbon Dioxide 28 mmol/L (23-31); Chloride 100 mmol/L (98-107); Globulin 3.4 g/dL (2.4-3.5); Glucose 129 mg/dL (80-115); Potassium 4.2 mmol/L (3.5-5.1); Sodium 136 mmol/L (136-145)
--- NOTE | 2020-10-16 08:08 | PDOC.HOSPP ---
- Subjective Encounter Date: 10/16/20 Encounter Time: 10:45 Subjective: Patient reports no shortness of breath while on oxygen. He has been ambulating to the bathroom. He denies any fever or other complaints. - Objective Vital Signs & Weight: Vital Signs (12 hours) Temp Pulse Resp BP BP Pulse Ox 10/16/20 07:38 97.6 F 88 22 H 133/89 95 10/16/20 05:26 96 10/15/20 22:56 97.6 F 83 18 112/76 97 Weight Admit Weight 146 lb 12.8 oz Weight 149 lb 8 oz I&O: 10/15/20 10/16/20 10/17/20 06:59 06:59 06:59 Intake Total 360 Output Total 1000 Balance -640 Result Diagrams: 10/16/20 05:43 10/16/20 05:43 Additional Labs: Accuchecks 10/16/20 10/15/20 10/15/20 04:05 19:57 16:23 POC Glucose 180 H 264 H 351 H 10/15/20 10/14/20 10/13/20 11:39 19:27 11:43 POC Glucose 165 H 210 H 180 H 10/12/20 11:15 POC Glucose 259 H Hospitalist ROS - Review of Systems Constitutional: denies: fever, chills Respiratory: denies: cough, shortness of breath Cardiovascular: denies: chest pain, palpitations Gastrointestinal: denies: nausea, vomiting, abdominal pain - Medication Medications: Active Medications Generic Name Dose Route Start Last Admin Trade Name Freq PRN Reason Stop Dose Admin Acetaminophen 650 mg 10/11/20 15:45 10/15/20 20:42 Acetaminophen 325 Mg Tab PO 650 mg Q4H PRN Administration Headache/Fever/Mild Pain (1-3) Ascorbic Acid 1,000 mg 10/12/20 09:00 10/15/20 08:31 Ascorbic Acid 500 Mg Chewable Tablet PO 1,000 mg DAILY FER Administration Atorvastatin Calcium 20 mg 10/12/20 21:00 10/15/20 20:43 Atorvastatin Calcium 20 Mg Tab PO 20 mg HS FER Administration Cholecalciferol 1,000 units 10/13/20 09:00 10/15/20 08:32 Cholecalciferol 1,000 Units (25 Mcg) Tab PO 1,000 units DAILY FER Administration Clopidogrel Bisulfate 75 mg 10/13/20 09:00 10/15/20 08:32 Clopidogrel Bisulfate 75 Mg Tab PO 75 mg DAILY FER Administration Dexamethasone 6 mg 10/12/20 08:00 10/15/20 08:32 Dexamethasone 4 Mg Tab PO 6 mg QAM-WM FER Administration Enoxaparin Sodium 40 mg 10/13/20 09:00 10/15/20 20:43 Enoxaparin Sodium 40 Mg/0.4 Ml Syringe SC 40 mg 0900,2100 FER Administration Glipizide 10 mg 10/13/20 09:00 10/15/20 08:31 Glipizide 10 Mg Tab PO 10 mg DAILY FER Administration Hydrochlorothiazide 12.5 mg 10/13/20 09:00 10/15/20 08:31 Hydrochlorothiazide 25 Mg Tab PO 12.5 mg DAILY FER Administration Remdesivir 100 mg/ Sodium 250 mls @ 250 mls/hr 10/13/20 13:00 10/15/20 14:58 Chloride IV 10/16/20 13:59 250 mls 1300 FER Administration Insulin Glargine 10 units/ 0.1 mls @ 0 mls/hr 10/15/20 21:00 10/15/20 20:44 Miscellaneous Medication SC 0.1 mls HS FER Administration Insulin Human Lispro 0 units 10/11/20 20:45 10/16/20 04:40 Humalog 300 Units/3 Ml Vial SC 2 unit .MODERATE SLIDING SC PRN Administration Moderate Correctional Scale Insulin Human Lispro 0 units 10/11/20 20:45 10/15/20 20:44 Humalog 300 Units/3 Ml Vial SC 3 unit .BEDTIME SLIDING SC PRN Administration Bedtime Correctional Scale Losartan Potassium 25 mg 10/13/20 09:00 10/15/20 08:32 Losartan 25 Mg Tab PO 25 mg DAILY FER Administration Polyethylene Glycol 17 gm 10/15/20 09:00 10/15/20 08:33 Polyethylene Glycol 3350 17 Gm Packet PO 17 gm DAILY FER Administration Senna/Docusate Sodium 2 tab 10/14/20 21:00 10/15/20 20:42 Senokot S 8.6-50 Mg Tab PO 2 tab BID FER Administration Sodium Chloride 10 ml 10/11/20 15:45 10/15/20 22:33 Flush - Normal Saline 10 Ml Syringe IVF 10 ml PRN PRN Administration Saline Flush Tamsulosin HCl 0.4 mg 10/13/20 09:00 10/15/20 08:32 Tamsulosin Hcl 0.4 Mg Cap PO 0.4 mg DAILY FER Administration Zinc Sulfate 220 mg 10/12/20 09:00 10/15/20 08:31 Zinc Sulfate 220 Mg Cap PO 220 mg DAILY FER Administration Hospitalist Exam Vitals: Vital Signs (12 hours) Temp Pulse Resp BP BP Pulse Ox 10/16/20 07:38 97.6 F 88 22 H 133/89 95 10/16/20 05:26 96 10/15/20 22:56 97.6 F 83 18 112/76 97 Weight Admit Weight 146 lb 12.8 oz Weight 149 lb 8 oz General Appearance: NAD, awake alert ENT: moist mucosa Heart: RRR, no murmur, no gallops, no rubs Respiratory: no wheezes, no ronchi, no tachypnea Respiratory - other findings: Minimal bibasilar rales Gastrointestinal: soft, non-tender, non-distended, normal bowel sounds Extremities: no edema Psychiatric: normal affect, normal behavior Hosp A/P - Plan COVID-19 pneumonia Patient presents with 1-1/2 weeks of generalized weakness and shortness of breath. Chest x-ray showed bilateral patchy infiltrates consistent with COVID- 19 pneumonia. Covid-19 test now positive. Patient does deny fevers, cough however does endorse myalgias, malaise. Patient with new O2 requirement 86% on room air now needing 2 L nasal cannula. WBC 4.8. H/H 15.5/50.1. 10/13- Oxygen now up to 5 L NC O2. 10/15- Oxygen now on 4L NC O2 Plan Supplemental oxygen Tylenol, ibuprofen for myalgias Trend WBC, fever curve Dexamethasone, Remdesivir day 01/23 Chest pain-resolved Patient with pleuritic chest pain. Describes pain worse when he takes a deep breath that is sharp. Denies any squeezing pressure like chest pain. No history of cardiac disease although patient does have significant risk factors. Initial troponin 0 0.010. EKG showed sinus tachycardia with no ST changes. Chest pain likely secondary to COVID-19 pneumonia. Plan Secondary to COVID-19 pneumonia ASA Acute hypoxic respiratory failure Patient with acute hypoxic respiratory failure secondary to moderate to severe COVID-19 pneumonia. Patient with new oxygen requirement now on 4 L of oxygen nasal cannula to maintain O2 sat. We will continue supplemental oxygen and closely monitor respiratory status. Treatment as above. Plan -Supplemental oxygen -Treatment as above -Closely monitor respiratory status Hypertension Continue home losartan Hyperlipidemia Continue home statin Type 2 diabetes mellitus Resume home Lantus and glipizide, ISS, ACHS glucose checks BPH Continue Flomax DVT prophylaxis - Lovenox FULL CODE Disposition: Home on home O2 when improving. Possibly tomorrow or the day af ter.
[2020-10-16] MEDS: Senokot S 8.6-50 MG TAB PO SCH ×2 (08:31→20:11)
[2020-10-16] MEDS: Hydrochlorothiazide 25 MG TAB PO SCH (08:32)
[2020-10-16] MEDS: Dexamethasone 4 MG TAB PO SCH (08:32)
[2020-10-16] MEDS: glipiZIDE 10 MG TAB PO SCH (08:32)
[2020-10-16] MEDS: Cholecalciferol 1,000 UNITS (25 MCG) TAB PO SCH (08:33)
[2020-10-16] MEDS: Tamsulosin HCl 0.4 MG CAP PO SCH (08:33)
[2020-10-16] MEDS: Ascorbic Acid 500 mg Chewable Tablet PO SCH (08:33)
[2020-10-16] MEDS: Clopidogrel Bisulfate 75 MG TAB PO SCH (08:33)
[2020-10-16] MEDS: Multivit, Therapeutic 1 TAB PO SCH (08:33)
[2020-10-16] MEDS: Losartan 25 MG TAB PO SCH (08:33)
[2020-10-16] MEDS: Zinc Sulfate 220 MG CAP PO SCH (08:33)
[2020-10-16] MEDS: Polyethylene Glycol 3350 17 GM Packet PO SCH (08:34)
[2020-10-16] MEDS: Enoxaparin Sodium 40 MG/0.4 ML SYRINGE SC SCH ×2 (08:34→20:11)
[2020-10-16] MEDS: REMDESIVIR (EUA) 100 MG in Sodium Chloride 0.9% 250 ML 230 ML IV SCH (13:28)
[2020-10-16] MEDS: Insulin Glargine 10 UNITS in Pre-Filled Syringe 1 EACH SC SCH (20:11)
[2020-10-16] MEDS: Atorvastatin Calcium 20 MG TAB PO SCH (20:11)
[2020-10-17 06:13] LABS: #Eosinphils 0.1 thou/uL (0.0-0.7); #Lymphocytes 1.1 thou/uL (1.20-3.40); #Monocytes 0.4 thou/uL (0.11-0.59); #Neutrophils 4.3 thou/uL (1.40-6.50); %Basophils 0.2 % (0.0-1.0); %Eosinophils 1.8 % (0.0-10.0); %Monocytes 7.1 % (0.0-10.0); Mean Corpuscular Hemoglobin 25.4 pg (27.0-31.0); Mean Corpuscular Volume 79.5 fL (78.0-98.0); Platelet Count 362 thou/uL (130-400); RBC Distribution Width 13.4 % (11.5-14.5); Red Blood Cell (RBC) Count 5.91 mill/uL (4.70-6.10); White Blood Cell (WBC) Count 5.9 thou/uL (4.8-10.8)
[2020-10-17 06:35] LABS: ALT (SGPT) 41 U/L (8-55); AST (SGOT) 19 U/L (5-34); Albumin 2.6 g/dL (3.4-4.8); Alkaline Phosphatase 57 U/L (40-110); Anion Gap 14 mmol/L (10-20); BUN (Urea Nitrogen) 22 mg/dL (8.4-25.7); Bilirubin, Total 0.3 mg/dL (0.2-1.2); Calc. Creatinine Clearance 73 mL/min (70-130); Calcium 8.3 mg/dL (7.8-10.44); Carbon Dioxide 26 mmol/L (23-31); Chloride 102 mmol/L (98-107); Globulin 3.4 g/dL (2.4-3.5); Sodium 137 mmol/L (136-145)
[2020-10-17 06:39] LABS: Glucose 56 mg/dL (80-115)
[2020-10-17] MEDS: Hydrochlorothiazide 25 MG TAB PO SCH (07:32)
[2020-10-17] MEDS: Cholecalciferol 1,000 UNITS (25 MCG) TAB PO SCH (07:32)
[2020-10-17] MEDS: Senokot S 8.6-50 MG TAB PO SCH ×2 (07:32→20:29)
[2020-10-17] MEDS: Dexamethasone 4 MG TAB PO SCH (07:32)
[2020-10-17] MEDS: glipiZIDE 10 MG TAB PO SCH (07:32)
[2020-10-17] MEDS: Clopidogrel Bisulfate 75 MG TAB PO SCH (07:33)
[2020-10-17] MEDS: Tamsulosin HCl 0.4 MG CAP PO SCH (07:33)
[2020-10-17] MEDS: Losartan 25 MG TAB PO SCH (07:33)
[2020-10-17] MEDS: Multivit, Therapeutic 1 TAB PO SCH (07:33)
[2020-10-17] MEDS: Zinc Sulfate 220 MG CAP PO SCH (07:33)
[2020-10-17] MEDS: Ascorbic Acid 500 mg Chewable Tablet PO SCH (07:33)
[2020-10-17] MEDS: Enoxaparin Sodium 40 MG/0.4 ML SYRINGE SC SCH ×2 (07:33→20:29)
[2020-10-17] MEDS: Polyethylene Glycol 3350 17 GM Packet PO SCH (07:34)
--- NOTE | 2020-10-17 07:37 | PDOC.HOSPP ---
- Subjective Encounter Date: 10/17/20 Encounter Time: 08:50 Subjective: Patient without complaints. He is alert and oriented to person and knows he is in the hospital. However he thinks he is still in [place]. He also thought it was 2001. Patient reports that he lives alone and [place] and that all of his family lives in [place]. Patient probably not able to go home by himself on oxygen. - Objective Vital Signs & Weight: Vital Signs (12 hours) Temp Pulse Resp BP Pulse Ox 10/17/20 05:27 98.1 F 78 20 110/82 96 10/16/20 23:47 98.2 F 78 20 114/78 98 10/16/20 20:00 94 L Weight Admit Weight 146 lb 12.8 oz Weight 148 lb 8.2 oz I&O: 10/16/20 10/17/20 10/18/20 06:59 06:59 06:59 Intake Total 240 Output Total 550 Balance -310 Result Diagrams: 10/17/20 05:36 10/17/20 05:36 Additional Labs: Accuchecks 10/17/20 10/16/20 10/16/20 05:25 19:19 15:58 POC Glucose 72 269 H 240 H Hospitalist ROS - Review of Systems Constitutional: denies: fever, chills Respiratory: denies: cough, shortness of breath Cardiovascular: denies: chest pain, palpitations Gastrointestinal: denies: nausea, vomiting, abdominal pain - Medication Medications: Active Medications Generic Name Dose Route Start Last Admin Trade Name Freq PRN Reason Stop Dose Admin Acetaminophen 650 mg 10/11/20 15:45 10/15/20 20:42 Acetaminophen 325 Mg Tab PO 650 mg Q4H PRN Administration Headache/Fever/Mild Pain (1-3) Ascorbic Acid 1,000 mg 10/12/20 09:00 10/17/20 07:33 Ascorbic Acid 500 Mg Chewable Tablet PO 1,000 mg DAILY FER Administration Atorvastatin Calcium 20 mg 10/12/20 21:00 10/16/20 20:11 Atorvastatin Calcium 20 Mg Tab PO 20 mg HS FER Administration Cholecalciferol 1,000 units 10/13/20 09:00 10/17/20 07:32 Cholecalciferol 1,000 Units (25 Mcg) Tab PO 1,000 units DAILY FER Administration Clopidogrel Bisulfate 75 mg 10/13/20 09:00 10/17/20 07:33 Clopidogrel Bisulfate 75 Mg Tab PO 75 mg DAILY FER Administration Dexamethasone 6 mg 10/12/20 08:00 10/17/20 07:32 Dexamethasone 4 Mg Tab PO 6 mg QAM-WM FER Administration Enoxaparin Sodium 40 mg 10/13/20 09:00 10/17/20 07:33 Enoxaparin Sodium 40 Mg/0.4 Ml Syringe SC 40 mg 0900,2100 FER Administration Glipizide 10 mg 10/13/20 09:00 10/17/20 07:32 Glipizide 10 Mg Tab PO 10 mg DAILY FER Administration Hydrochlorothiazide 12.5 mg 10/13/20 09:00 10/17/20 07:32 Hydrochlorothiazide 25 Mg Tab PO 12.5 mg DAILY FER Administration Insulin Glargine 10 units/ 0.1 mls @ 0 mls/hr 10/15/20 21:00 10/16/20 20:11 Miscellaneous Medication SC 0.1 mls HS FER Administration Insulin Human Lispro 0 units 10/11/20 20:45 10/16/20 16:58 Humalog 300 Units/3 Ml Vial SC 4 unit .MODERATE SLIDING SC PRN Administration Moderate Correctional Scale Insulin Human Lispro 0 units 10/11/20 20:45 10/16/20 20:12 Humalog 300 Units/3 Ml Vial SC 3 unit .BEDTIME SLIDING SC PRN Administration Bedtime Correctional Scale Losartan Potassium 25 mg 10/13/20 09:00 10/17/20 07:33 Losartan 25 Mg Tab PO 25 mg DAILY FER Administration Multivitamins 1 tab 10/16/20 09:00 10/17/20 07:33 Multivit, Therapeutic 1 Tab PO 1 tab DAILY FER Administration Polyethylene Glycol 17 gm 10/15/20 09:00 10/17/20 07:34 Polyethylene Glycol 3350 17 Gm Packet PO 17 gm DAILY FER Administration Senna/Docusate Sodium 2 tab 10/14/20 21:00 10/17/20 07:32 Senokot S 8.6-50 Mg Tab PO 2 tab BID FER Administration Sodium Chloride 10 ml 10/11/20 15:45 10/15/20 22:33 Flush - Normal Saline 10 Ml Syringe IVF 10 ml PRN PRN Administration Saline Flush Tamsulosin HCl 0.4 mg 10/13/20 09:00 10/17/20 07:33 Tamsulosin Hcl 0.4 Mg Cap PO 0.4 mg DAILY FER Administration Zinc Sulfate 220 mg 10/12/20 09:00 10/17/20 07:33 Zinc Sulfate 220 Mg Cap PO 220 mg DAILY FER Administration Hospitalist Exam Vitals: Vital Signs (12 hours) Temp Pulse Resp BP Pulse Ox 10/17/20 05:27 98.1 F 78 20 110/82 96 10/16/20 23:47 98.2 F 78 20 114/78 98 10/16/20 20:00 94 L Weight Admit Weight 146 lb 12.8 oz Weight 148 lb 8.2 oz General Appearance: NAD, awake alert ENT: moist mucosa Heart: RRR, no murmur, no gallops, no rubs Respiratory: CTAB, no wheezes, no rales, no ronchi Gastrointestinal: soft, non-tender, non-distended, normal bowel sounds Extremities: no edema Neurological: no focal deficits Musculoskeletal: normal tone, normal strength Psychiatric: normal affect, normal behavior, oriented to person. negative: oriented to place, oriented to time Hosp A/P - Plan COVID-19 pneumonia Patient presents with 1-1/2 weeks of generalized weakness and shortness of breath. Chest x-ray showed bilateral patchy infiltrates consistent with COVID- 19 pneumonia. Covid-19 test now positive. Patient does deny fevers, cough however does endorse myalgias, malaise. Patient with new O2 requirement 86% on room air now needing 2 L nasal cannula. WBC 4.8. H/H 15.5/50.1. 10/13- Oxygen now up to 5 L NC O2. 10/15- Oxygen now on 4L NC O2 10/17-oxygen still at 4 L nasal cannula O2 Plan Supplemental oxygen Tylenol, ibuprofen for myalgias Trend WBC, fever curve Dexamethasone, Remdesivir completed Chest pain-resolved Patient with pleuritic chest pain. Describes pain worse when he takes a deep breath that is sharp. Denies any squeezing pressure like chest pain. No history of cardiac disease although patient does have significant risk factors. Initial troponin 0 0.010. EKG showed sinus tachycardia with no ST changes. Chest pain likely secondary to COVID-19 pneumonia. Plan Secondary to COVID-19 pneumonia ASA Acute hypoxic respiratory failure Patient with acute hypoxic respiratory failure secondary to moderate to severe COVID-19 pneumonia. Patient with new oxygen requirement now on 4 L of oxygen nasal cannula to maintain O2 sat. We will continue supplemental oxygen and closely monitor respiratory status. Treatment as above. Plan -Supplemental oxygen -Treatment as above -Closely monitor respiratory status Hypertension Continue home losartan Hyperlipidemia Continue home statin Type 2 diabetes mellitus Resume home Lantus and glipizide, ISS, ACHS glucose checks BPH Continue Flomax Acute versus chronic encephalopathy Uncertain if patient has some baseline dementia. DVT prophylaxis - Lovenox FULL CODE Disposition: Home on home O2 when improving. Given patient's mental status he is probably not safe to go home alone. We will have case management contact family and see if there is someone he can go stay with when he is discharged. He was down to 3 L of oxygen when I was in the room and can likely go home tomorrow if he has somewhere safe to go with home oxygen.
[2020-10-17 10:06] VITALS: BMI 22.6
[2020-10-17] MEDS: HumaLOG 300 UNITS/3 ML VIAL SC PRN ×3 (12:07→20:33)
[2020-10-17] MEDS: Atorvastatin Calcium 20 MG TAB PO SCH (20:29)
[2020-10-17] MEDS: Insulin Glargine 10 UNITS in Pre-Filled Syringe 1 EACH SC SCH (20:29)
[2020-10-18] MEDS: HumaLOG 300 UNITS/3 ML VIAL SC PRN ×3 (05:18→17:19)
[2020-10-18 08:33] VITALS: BP 117/77; TEMP 97.3
[2020-10-18] MEDS: Hydrochlorothiazide 25 MG TAB PO SCH (09:04)
[2020-10-18] MEDS: Polyethylene Glycol 3350 17 GM Packet PO SCH (09:04)
[2020-10-18] MEDS: Cholecalciferol 1,000 UNITS (25 MCG) TAB PO SCH (09:09)
[2020-10-18] MEDS: Clopidogrel Bisulfate 75 MG TAB PO SCH (09:09)
[2020-10-18] MEDS: glipiZIDE 10 MG TAB PO SCH (09:09)
[2020-10-18] MEDS: Senokot S 8.6-50 MG TAB PO SCH (09:09)
[2020-10-18] MEDS: Dexamethasone 4 MG TAB PO SCH (09:09)
[2020-10-18] MEDS: Losartan 25 MG TAB PO SCH (09:10)
[2020-10-18] MEDS: Multivit, Therapeutic 1 TAB PO SCH (09:10)
[2020-10-18] MEDS: Enoxaparin Sodium 40 MG/0.4 ML SYRINGE SC SCH (09:10)
[2020-10-18] MEDS: Zinc Sulfate 220 MG CAP PO SCH (09:10)
[2020-10-18] MEDS: Tamsulosin HCl 0.4 MG CAP PO SCH (09:10)
[2020-10-18] MEDS: Ascorbic Acid 500 mg Chewable Tablet PO SCH (09:10)
--- NOTE | 2020-10-18 13:01 | PDOC.DS.DS ---
Provider Date of Admission: 10/12/20 14:35 Date of Discharge: 10/18/20 Admitting Provider: Paul Steinberg MD Primary Care Physician: Sheela Hagen MD Course Hospital Course: Discharge diagnosis: 1. Acute hypoxic respiratory failure 2. COVID-19 pneumonia 3. Acute metabolic encephalopathy Hospital course: Patient is a pleasant 65-year-old gentleman who was admitted to the hospital on October 11, 2020 for acute hypoxic respiratory failure secondary to COVID-19 pneumonia. He received dexamethasone, vitamin C and zinc. He also received remdesivir. He continued to improve clinically but was still needing supplemental oxygen. He is being discharged home after arranging for home oxyge n. Many thanks for allowing me to participate in your patient's care. Please feel free to contact me with any questions or concerns. Discharge destination: Home Total amount of time spent coordinating this discharge: 33 minutes Resuscitation Status: 10/11/20 15:45 Resuscitation Status Routine Co-Sign Provider: Resuscitation Status: FULL: Full Resuscitation Lab Results: 10/17/20 05:36 10/17/20 05:36 Abnormal Lab Results - Last 48 hrs 10/17/20 05:36: MCH 25.4 L, MPV 6.0 L, Lymphocytes % 18.0 L, Lymphocytes # 1.1 L 10/17/20 05:36: Albumin 2.6 L, Albumin/Globulin Ratio 0.8 L Vitals: Vital Signs (12 hours) Temp Pulse Resp BP Pulse Ox 10/18/20 08:29 97.3 F L 82 20 117/77 92 L 10/18/20 08:00 96 Weight Admit Weight 146 lb 12.8 oz Weight 147 lb 8 oz Physical Exam: The patient was seen and examined on the day of discharge. Patient denies chest pain or shortness of breath. Vital signs are stable. S1 and S2 are heard. L ungs are clear to auscultation bilaterally. Plan Prescriptions: Dexamethasone 6 mg PO DAILY #3 tablet Pantoprazole [Protonix] 40 mg PO DAILY #3 tab Ascorbic Acid [Vitamin C] 1,000 mg PO DAILY #3 tablet Zinc Sulfate [Zinc-220] 220 mg PO DAILY #3 capsule Home Medications: Medication Instructions Recorded Confirmed Type Clopidogrel Bisulfate [Clopidogrel] 1 tab PO DAILY 10/11/20 10/11/20 History Hydrochlorothiazide 1 cap PO DAILY 10/11/20 10/11/20 History Insulin Glargine,Hum.Rec.Anlog 20 units SQ DAILY 10/11/20 10/11/20 History [Lantus] Losartan Potassium 1 tab PO DAILY 10/11/20 10/11/20 History Simvastatin 40 mg PO HS 10/11/20 10/11/20 History Tamsulosin HCl 1 capsule PO DAILY 10/11/20 10/11/20 History glipiZIDE [Glipizide] 10 mg PO DAILY 10/11/20 10/11/20 History Ascorbic Acid [Vitamin C] 1,000 mg PO DAILY #3 tablet 10/18/20 Rx Dexamethasone 6 mg PO DAILY #3 tablet 10/18/20 Rx Pantoprazole [Protonix] 40 mg PO DAILY #3 tab 10/18/20 Rx Zinc Sulfate [Zinc-220] 220 mg PO DAILY #3 capsule 10/18/20 Rx Allergies: No Known Drug Allergies Allergy (Verified 12/11/19 06:29) Discharge Instructions:: Get a pulse oximeter and check your oxygen saturations 3 times a day and whenever you feel short of breath. Seek medical attention for oxygen saturation less than 90%. Activity:: Activity as Tolerated Nourishment:: Diabetic Diet, Heart Healthy Diet Referrals: Sheela Hagen MD [Primary Care Provider] - 3 Days Disposition: HOME Quality CORE MEASURES:: N/A
== END 2020-10-18 18:02 | disposition home or self-care (01) | DRG 177 ==
LOC: ERS 09:15 → T4-A 15:12 → OBSVTOIN 10-12 14:35
PROVIDERS: ADMIT Internal Medicine; ATTEND Internal Medicine
PROC: 8E0ZXY6 Isolation (ICD-10-PCS; principal; 2020-10-12)
PROC: XW033E5 Introduction of Remdesivir Anti-infective into Peripheral Vein, Percutaneous Approach, New Technology Group 5 (ICD-10-PCS; 2020-10-12)
DX: U07.1 COVID-19 (principal); J12.82 Pneumonia due to coronavirus disease 2019; J96.01 Acute respiratory failure with hypoxia; G93.41 Metabolic encephalopathy; I10 Essential (primary) hypertension; E78.5 Hyperlipidemia, unspecified; N40.0 Benign prostatic hyperplasia without lower urinary tract symptoms; R07.9 Chest pain, unspecified; E78.00 Pure hypercholesterolemia, unspecified; K59.00 Constipation, unspecified; E11.649 Type 2 diabetes mellitus with hypoglycemia without coma; Z79.4 Long term (current) use of insulin; Z79.01 Long term (current) use of anticoagulants; Z79.899 Other long term (current) drug therapy
CPT/HCPCS: 0240U; 36415; 36416; 71045; 80048; 80053; 81003; 81015; 82728; 83605; 83735; 83880; 84443; 84484; 85025; 85379; 86140; 93005; 96372; 96374; 96375; G0378; J1100; J1650; J1815; J3475; J7050; J8540

== ENCOUNTER 2021-09-30 07:21 | Emergency (ER) | payer MEDICARE, MEDICAID ==
[2021-09-30] MEDS ORDERED: Ibuprofen 800 MG TAB ONE (08:55)
== END 2021-09-30 08:59 | disposition home or self-care (01) ==
LOC: ERS 07:21
DX: M79.604 Pain in right leg (principal); I10 Essential (primary) hypertension; E11.9 Type 2 diabetes mellitus without complications; E78.5 Hyperlipidemia, unspecified; E78.00 Pure hypercholesterolemia, unspecified

== ENCOUNTER 2022-06-08 13:42 | Inpatient (IN) | payer MEDICARE, MEDICAID ==
[~2022-06-08 13:42] MED LIST: Iopamidol-370 76% 500 ML 1 ML ONE
[2022-06-08 14:06] LABS: #Eosinphils 0.2 thou/uL (0.0-0.7); #Lymphocytes 1.8 thou/uL (1.20-3.40); #Monocytes 0.5 thou/uL (0.11-0.59); %Basophils 0.1 % (0.0-1.0); %Eosinophils 3.1 % (0.0-10.0); %Lymphocytes 27.5 % (21.0-51.0); %Monocytes 7.9 % (0.0-10.0); %Neutrophils 61.3 % (42.0-75.0); Hemoglobin 14.5 g/dL (14.0-18.0); Mean Corpuscular HGB CONC 32.5 g/dL (32.0-36.0); Mean Corpuscular Hemoglobin 26.3 pg (27.0-31.0); Mean Corpuscular Volume 80.9 fL (78.0-98.0); Platelet Count 199 thou/uL (130-400); RBC Distribution Width 13.1 % (11.5-14.5); Red Blood Cell (RBC) Count 5.51 mill/uL (4.70-6.10); White Blood Cell (WBC) Count 6.5 thou/uL (4.8-10.8)
[2022-06-08 14:11] LABS: Prothrombin Time 13.2 sec (12.0-14.7)
[2022-06-08 14:12] LABS: PTT 25.9 sec (22.9-36.1)
[2022-06-08 14:25] LABS: ALT (SGPT) 25 U/L (8-55); AST (SGOT) 12 U/L (5-34); Albumin 4.2 g/dL (3.4-4.8); Alkaline Phosphatase 56 U/L (40-110); Anion Gap 14 mmol/L (10-20); BUN (Urea Nitrogen) 25 mg/dL (8.4-25.7); Bilirubin, Total 0.5 mg/dL (0.2-1.2); CK (CPK) 236 U/L (30-200); Calc. Creatinine Clearance 0 mL/min (70-130); Calcium 9.6 mg/dL (7.8-10.44); Carbon Dioxide 28 mmol/L (23-31); Chloride 104 mmol/L (98-107); Estimated GFR 44; Globulin 3.1 g/dL (2.4-3.5); Glucose 266 mg/dL (80-115); Potassium 4.8 mmol/L (3.5-5.1); Protein, Total 7.3 g/dL (5.8-8.1); Sodium 141 mmol/L (136-145)
[2022-06-08 15:58] LABS: Bilirubin Negative (Negative); Blood, Urine Negative (Negative); Clarity Clear (Clear); Glucose, Urine (Dipstick) Greater than 1000 mg/dL (Negative); Ketone, Urine Negative (Negative); Leukocyte Negative Leu/uL (Negative); Nitrite Negative (Negative); Protein, Urine (Dipstick) Negative (Neg-Trace); Urobilinogen Normal mg/dL (Less than 2)
[2022-06-08 16:07] LABS: Amphetamine Not Detected (NotDetected); Barbiturates Screen Not Detected (NotDetected); Benzodiazepine Screen Not Detected (NotDetected); Cocaine Metabolite Screen Detected (NotDetected); Methadone Not Detected (NotDetected); Methamphetamine Not Detected (NotDetected); Opiate Screen Not Detected (NotDetected); Oxycodone Screen Not Detected (NotDetected); Phencyclidine (PCP) Not Detected (NotDetected); THC/Cannabinoid Screen Not Detected (NotDetected); Tricyclic Screen Not Detected (NotDetected)
[2022-06-08] MEDS ORDERED: Aspirin Chewable 81 MG TAB ONE (16:28)
[2022-06-08] MEDS ORDERED: Labetalol HCl 100 MG/20 ML VIAL SLOW IVP PRN (17:10)
[2022-06-08] MEDS ORDERED: Ondansetron ODT 4 MG TAB PO PRN (17:10)
[2022-06-08] MEDS ORDERED: Ondansetron PF 4 MG/2 ML Vial IVP PRN (17:10)
[2022-06-08] MEDS ORDERED: Aspirin 81 mg Enteric Coated Tablet PO SCH (17:30)
[2022-06-08 17:45] LABS: Troponin I Less than 0.010 ng/mL (< 0.028)
[2022-06-08 20:52] LABS: Troponin I Less than 0.010 ng/mL (< 0.028)
[2022-06-08] MEDS ORDERED: Simvastatin 40 MG TAB PO SCH (21:00)
[2022-06-08] MEDS: Atorvastatin Calcium 40 MG TAB PO SCH (21:49)
[2022-06-08 22:17] VITALS: BMI 24.6
[2022-06-08 22:45] LABS: Magnesium 2.2 mg/dL (1.6-2.6)
[2022-06-09 05:25] LABS: #Eosinphils 0.4 thou/uL (0.0-0.7); #Lymphocytes 2.4 thou/uL (1.20-3.40); #Monocytes 0.9 thou/uL (0.11-0.59); #Neutrophils 4.9 thou/uL (1.40-6.50); %Basophils 0.3 % (0.0-1.0); %Eosinophils 4.8 % (0.0-10.0); %Lymphocytes 27.7 % (21.0-51.0); %Monocytes 10.2 % (0.0-10.0); Hemoglobin 14.3 g/dL (14.0-18.0); Mean Corpuscular HGB CONC 32.9 g/dL (32.0-36.0); Mean Corpuscular Hemoglobin 26.4 pg (27.0-31.0); Mean Corpuscular Volume 80.3 fL (78.0-98.0); Mean Platelet Volume 6.9 fL (7.4-10.4); Platelet Count 189 thou/uL (130-400); RBC Distribution Width 12.9 % (11.5-14.5); Red Blood Cell (RBC) Count 5.43 mill/uL (4.70-6.10); White Blood Cell (WBC) Count 8.6 thou/uL (4.8-10.8)
[2022-06-09 05:51] LABS: Anion Gap 13 mmol/L (10-20); BUN (Urea Nitrogen) 23 mg/dL (8.4-25.7); Calc. Creatinine Clearance 54 mL/min (70-130); Calcium 9.5 mg/dL (7.8-10.44); Carbon Dioxide 26 mmol/L (23-31); Cardiac Risk 4.2 (Less than 4.5); Chloride 100 mmol/L (98-107); Cholesterol 130 mg/dl (< 200 Desired); Estimated GFR 57; Glucose 411 mg/dL (80-115); HDL Cholesterol 31 mg/dL (>60 Neg Risk); LDL Cholesterol, Calculated 65 mg/dL; Potassium 4.2 mmol/L (3.5-5.1); Sodium 135 mmol/L (136-145); Triglycerides 168 mg/dL (Less than 150)
[2022-06-09] MEDS ORDERED: Dextrose 5% in Water 1,000 ML IV PRN (07:57)
[2022-06-09] MEDS ORDERED: Dextrose 50% Abboject 50 ML SYRINGE SLOW IVP PRN (07:57)
[2022-06-09] MEDS: Clopidogrel Bisulfate 75 MG TAB PO SCH (08:31)
[2022-06-09] MEDS: Aspirin 81 mg Enteric Coated Tablet PO SCH (08:31)
[2022-06-09] MEDS: Enoxaparin Sodium 40 MG/0.4 ML SYRINGE SC SCH (08:31)
[2022-06-09] MEDS: Ezetimibe 10 MG TAB PO SCH (08:32)
[2022-06-09] MEDS: Insulin Glargine 30 UNITS/0.3 ML VIAL SC SCH ×2 (08:32→21:34)
[2022-06-09] MEDS: Losartan 25 MG TAB PO SCH (08:33)
[2022-06-09] MEDS: Pregabalin 75 MG CAP PO SCH ×2 (08:34→21:34)
[2022-06-09] MEDS: Tamsulosin HCl 0.4 MG CAP PO SCH (08:37)
[2022-06-09] MEDS: HumaLOG 300 UNITS/3 ML VIAL SC PRN ×3 (13:06→21:38)
[2022-06-09] MEDS: Acetaminophen 325 MG TAB PO PRN (14:46)
[2022-06-09] MEDS: Atorvastatin Calcium 40 MG TAB PO SCH (21:35)
[2022-06-10] MEDS: HumaLOG 300 UNITS/3 ML VIAL SC PRN ×4 (05:58→20:53)
[2022-06-10] MEDS ORDERED: glipiZIDE 10 MG TAB PO SCH ×2 (09:00)
[2022-06-10] MEDS ORDERED: Non-Formulary Item 1 EACH (Metformin Hcl [Metformin Hcl] 1,000 MG Tablet) PO SCH (09:00)
[2022-06-10] MEDS: Acetaminophen 325 MG TAB PO PRN ×2 (09:26→14:53)
[2022-06-10] MEDS: Pregabalin 75 MG CAP PO SCH ×2 (09:27→20:53)
[2022-06-10] MEDS: Aspirin 81 mg Enteric Coated Tablet PO SCH (09:28)
[2022-06-10] MEDS: metFORMIN 500 MG TAB PO SCH ×2 (09:28→20:52)
[2022-06-10] MEDS: Tamsulosin HCl 0.4 MG CAP PO SCH (09:28)
[2022-06-10] MEDS: glipiZIDE 5 MG TAB PO SCH ×2 (09:28→20:52)
[2022-06-10] MEDS: Losartan 25 MG TAB PO SCH (09:29)
[2022-06-10] MEDS: Ezetimibe 10 MG TAB PO SCH (09:29)
[2022-06-10] MEDS: Clopidogrel Bisulfate 75 MG TAB PO SCH (09:29)
[2022-06-10] MEDS: Enoxaparin Sodium 40 MG/0.4 ML SYRINGE SC SCH (09:30)
[2022-06-10] MEDS: Insulin Glargine 30 UNITS/0.3 ML VIAL SC SCH ×2 (09:31→20:53)
[2022-06-10] MEDS: Atorvastatin Calcium 40 MG TAB PO SCH (20:52)
[2022-06-11] MEDS: Aspirin 81 mg Enteric Coated Tablet PO SCH (09:11)
[2022-06-11] MEDS: Pregabalin 75 MG CAP PO SCH (09:11)
[2022-06-11] MEDS: glipiZIDE 5 MG TAB PO SCH (09:11)
[2022-06-11] MEDS: Tamsulosin HCl 0.4 MG CAP PO SCH (09:11)
[2022-06-11] MEDS: Losartan 25 MG TAB PO SCH (09:12)
[2022-06-11] MEDS: Enoxaparin Sodium 40 MG/0.4 ML SYRINGE SC SCH (09:13)
[2022-06-11] MEDS: Clopidogrel Bisulfate 75 MG TAB PO SCH (09:13)
[2022-06-11] MEDS: Insulin Glargine 30 UNITS/0.3 ML VIAL SC SCH (09:14)
[2022-06-11] MEDS: Ezetimibe 10 MG TAB PO SCH (09:14)
[2022-06-11] MEDS: metFORMIN 500 MG TAB PO SCH (09:14)
[2022-06-11] MEDS: Acetaminophen 325 MG TAB PO PRN (12:51)
[2022-06-11] MEDS: HumaLOG 300 UNITS/3 ML VIAL SC PRN (12:54)
[2022-06-11 20:14] VITALS: BP 127/81; TEMP 98
== END 2022-06-11 16:29 | disposition home health service (06) | DRG 64 ==
LOC: ERS 13:42 → NEURO 16:22 → OBSVTOIN 06-09 12:51
PROVIDERS: ADMIT Internal Medicine; ATTEND Internal Medicine
DX: I63.132 Cerebral infarction due to embolism of left carotid artery (principal); R29.721 NIHSS score 21; Z20.822 Contact with and (suspected) exposure to COVID-19; G93.41 Metabolic encephalopathy; G81.91 Hemiplegia, unspecified affecting right dominant side; I10 Essential (primary) hypertension; E78.5 Hyperlipidemia, unspecified; N40.0 Benign prostatic hyperplasia without lower urinary tract symptoms; Z60.2 Problems related to living alone; E11.65 Type 2 diabetes mellitus with hyperglycemia; E11.51 Type 2 diabetes mellitus with diabetic peripheral angiopathy without gangrene; F14.10 Cocaine abuse, uncomplicated; E78.00 Pure hypercholesterolemia, unspecified; S82.831A Other fracture of upper and lower end of right fibula, initial encounter for closed fracture; W07.XXXA Fall from chair, initial encounter; Z91.19 Patient's noncompliance with other medical treatment and regimen; Z28.82 Immunization not carried out because of caregiver refusal; Z86.73 Personal history of transient ischemic attack (TIA), and cerebral infarction without residual deficits; Z79.899 Other long term (current) drug therapy; Z79.4 Long term (current) use of insulin; Z79.84 Long term (current) use of oral hypoglycemic drugs; Z79.52 Long term (current) use of systemic steroids; Z86.16 Personal history of COVID-19; Z87.01 Personal history of pneumonia (recurrent); Z95.828 Presence of other vascular implants and grafts; Z87.891 Personal history of nicotine dependence
CPT/HCPCS: 36415; 36416; 70450; 70496; 70498; 70551; 71045; 80048; 80053; 80061; 80306; 81003; 82550; 83735; 84484; 85025; 85610; 85730; 93005; 93306; 94760; 95712; 95819; 95957; 96372; G0378; J1650; J1815; Q9967; U0003; U0005

== ENCOUNTER 2023-04-15 08:28 | Emergency (ER) | payer MEDICARE, MEDICAID ==
[2023-04-15 09:16] LABS: #Eosinphils 0.2 thou/uL (0.0-0.7); #Monocytes 0.6 thou/uL (0.11-0.59); #Neutrophils 4.3 thou/uL (1.40-6.50); %Basophils 0.3 % (0.0-1.0); %Eosinophils 3.2 % (0.0-10.0); %Monocytes 8.2 % (0.0-10.0); Hemoglobin 14.4 g/dL (14.0-18.0); Mean Corpuscular HGB CONC 31.5 g/dL (32.0-36.0); Mean Corpuscular Hemoglobin 25.4 pg (27.0-31.0); Mean Corpuscular Volume 80.5 fl (78.0-98.0); Mean Platelet Volume 8.7 fL (7.4-10.4); Platelet Count 186 10x3/uL (130-400); RBC Distribution Width 15.6 % (11.5-14.5); Red Blood Cell (RBC) Count 5.68 mill/uL (4.70-6.10); White Blood Cell (WBC) Count 6.8 10x3/uL (4.8-10.8)
[2023-04-15 09:38] LABS: Bacteria/HPF None Seen HPF (None Seen); Bilirubin Negative (Negative); Blood, Urine Negative (Negative); CAUTI Indications for Culture Dysuria,urgency,freq; Clarity Clear (Clear); Glucose, Urine (Dipstick) 500 mg/dL (Negative); Ketone, Urine Negative (Negative); Leukocyte Negative Leu/uL (Negative); Nitrite Negative (Negative); Protein, Urine (Dipstick) 70 mg/dL (Neg-Trace); RBC/HPF 0-3 HPF (0-3); Specific Gravity, Urine 1.013 (1.002-1.036); Squamous Epithelial None Seen HPF (0-3); Urobilinogen Normal mg/dL (Less than 2); WBC/HPF None Seen HPF (0-3)
[2023-04-15 09:41] LABS: Urine Culture Reflex No No
[2023-04-15 09:43] LABS: ALT (SGPT) 21 U/L (8-55); AST (SGOT) 14 U/L (5-34); Albumin 4.3 g/dL (3.4-4.8); Alkaline Phosphatase 51 U/L (40-110); Anion Gap 10 mmol/L (10-20); BUN (Urea Nitrogen) 12 mg/dL (8.4-25.7); Bilirubin, Total 0.4 mg/dL (0.2-1.2); Calc. Creatinine Clearance 0 mL/min (70-130); Calcium 9.9 mg/dL (7.8-10.44); Carbon Dioxide 32 mmol/L (23-31); Chloride 102 mmol/L (98-107); Estimated GFR 81; Globulin 3.1 g/dL (2.4-3.5); Glucose 194 mg/dL (80-115); Potassium 4.3 mmol/L (3.5-5.1); Protein, Total 7.4 g/dL (5.8-8.1); Sodium 140 mmol/L (136-145)
== END 2023-04-15 10:35 | disposition home or self-care (01) ==
LOC: ERS 08:28
DX: N43.3 Hydrocele, unspecified (principal); E11.9 Type 2 diabetes mellitus without complications; E78.00 Pure hypercholesterolemia, unspecified; I10 Essential (primary) hypertension; Z79.4 Long term (current) use of insulin; Z79.84 Long term (current) use of oral hypoglycemic drugs; Z79.899 Other long term (current) drug therapy
CPT/HCPCS: 76870; 80053; 81001; 83880; 85025; 93976